=== PATIENT | female | born 1960 | race Caucasian/White ===

== ENCOUNTER → 2023-12-17 | Outpatient (CLI) | payer OTHER ==
[~2023-12-17] MED LIST: AMLODIPINE BESY10 MG PO; ATORVASTATIN CA20 MG PO; Ativan1 MG PO; BUPROPION PO; CHLO25B PO; FAMO20 PO; GLUCOPHAGE1000 M1 PO; HYDR100 PO; LATANOPROST2.5 M3 BOTHEYES; NEURONTIN300 MG PO; NITROGLYCERIN0.4 M3 UD; ONDA4ODT MM; ONDA4ODT SL; PROZAC40 MG PO; TOLTERODINE TART4 MG PO; Ventolin/Prove6.7 GM INH; [UNRECOGNIZED DRUG - OTHER] PO
[2023-12-19 09:31] LABS: Stool Occult Bld Immuno 1 Negative (NEGATIVE)
== END ==
LOC: LAB 06:45 → LAB SHORT 06:45
PROVIDERS: Family Medicine
DX: Z12.11 Encounter for screening for malignant neoplasm of colon (principal)
CPT/HCPCS: G0328

== ENCOUNTER → 2025-04-05 | Outpatient (CLI) | payer MEDICARE, OTHER ==
[2025-04-05 14:40] LABS: Creatinine, Urine Random 145.0 mg/dL (27.00-270.00); Microalbumin, Random Urine 74.8 mg/L (0.000-20.000)
== END ==
LOC: LAB SHORT 11:00 → LAB 11:00
PROVIDERS: Family Medicine
DX: N39.46 Mixed incontinence (principal); Z79.899 Other long term (current) drug therapy
CPT/HCPCS: 82043; 82570; 87077; 87086; 87186